=== PATIENT | male | born 2000 | race Two or more races ===

== ENCOUNTER 2023-07-27 16:20 | Emergency (ER) | payer OTHER ==
[~2023-07-27] VITALS: Ht 185.4 cm; Wt 113.4 kg
== END 2023-07-27 19:48 | disposition home or self-care (01) ==
LOC: ER 16:21 → EMR PED 16:21
DX: S61.012A Laceration without foreign body of left thumb without damage to nail, initial encounter (principal); W26.0XXA Contact with knife, initial encounter; Y93.G3 Activity, cooking and baking; Y92.89 Other specified places as the place of occurrence of the external cause; Y99.8 Other external cause status; Z88.0 Allergy status to penicillin